=== PATIENT | female | born 1985 | race Caucasian/White ===

== ENCOUNTER 2017-09-19 17:05 | Inpatient (IN) | payer MEDICAID ==
[2017-09-19] MEDS ORDERED: PREN1TAB80 PO (17:38)
[2017-09-19 17:39] VITALS: BP 123/80
[2017-09-19] MEDS ORDERED: RINGERS SOLUTION,LACTATED 1,000 ML IV SCH (21:51)
[2017-09-19] MEDS: FentaNYL CITRATE-PF 100 MCG/2 ML VIAL IVP PRN ×4 (22:15→23:37)
[2017-09-19 23:26] VITALS: BP 116/65
[2017-09-20] MEDS ORDERED: RINGERS SOLUTION,LACTATED 1,000 ML IV PRN (00:06)
[2017-09-20] MEDS ORDERED: RINGERS SOLUTION,LACTATED 1,000 ML IV SCH (00:06)
[2017-09-20] MEDS ORDERED: OXYTOCIN 30 UNITS/LACT RINGERS 500 ML IV ONE (00:06)
[2017-09-20] MEDS ORDERED: OXYGEN THERAPY IH SCH (00:15)
[2017-09-20] MEDS ORDERED: FentaNYL CITRATE-PF 100 MCG/2 ML VIAL IVP PRN (00:15)
[2017-09-20] MEDS ORDERED: METOCLOPRAMIDE HCL 5 MG/ML 2 ML VIAL IVP PRN (00:15)
[2017-09-20] MEDS ORDERED: CITRIC ACID/SODIUM CITRATE 30 ML SOLUTION UDCUP PO PRN (00:15)
[2017-09-20] MEDS ORDERED: AMPICILLIN SODIUM 2 GM/NS 100 ML IV ONE (00:30)
[2017-09-20 00:40] LABS: BASOPHILS % (AUTO) 0.3 % (0.0-2.0); EOSINOPHILS % (AUTO) 0.4 % (1.0-6.0); LYMPHOCYTES # (AUTO) 1.9 K/uL (1.0-4.8); LYMPHOCYTES % (AUTO) 15.3 % (22.0-44.0); MEAN CORPUSCULAR HEMOGLOBIN 32.9 pg (26.0-34.0); MEAN CORPUSCULAR VOLUME 94 fL (80-100); MONOCYTES # (AUTO) 0.6 K/uL (0.1-1.0); MONOCYTES % (AUTO) 4.7 % (2.0-9.0); NEUTROPHILS % (AUTO) 79.3 % (40.0-70.0); PLATELET COUNT (AUTO)-OB 167 K/uL (150-450); RED BLOOD CELL COUNT(AUTO) 4.24 MIL/uL (4.00-5.20); RED CELL DISTRIBUTION WIDTH 13.3 % (11.5-14.5)
[2017-09-20] MEDS ORDERED: ROPIVACAINE HCL/PF 0.2% 0 ML ED ONE (00:52)
[2017-09-20] MEDS ORDERED: FentaNYL CITRATE-PF 100 MCG/2 ML VIAL ONE (00:59)
[2017-09-20] MEDS ORDERED: BUPIVACAINE HCL/PF 0.25% 10 ML VIAL ONE (00:59)
[2017-09-20] MEDS ORDERED: AMPICILLIN SODIUM 1 GM/NS 50 ML IV SCH (04:30)
[2017-09-20] MEDS ORDERED: LANOLIN 7 GM OINTMENT TP PRN (04:45)
[2017-09-20] MEDS ORDERED: GLYCERIN/WITCH HAZEL LEAF 40 PADS JAR TP PRN (04:45)
[2017-09-20] MEDS ORDERED: BENZOCAINE 20%/MENTHOL 56 GM SPRAY CANISTER TP PRN (04:45)
[2017-09-20] MEDS ORDERED: ACETAMINOPHEN/CODEINE 300-30 MG TABLET PO PRN ×2 (04:45)
[2017-09-20] MEDS: IBUPROFEN 800 MG TABLET PO SCH ×3 (05:44→18:31)
[2017-09-20] MEDS: MAGNESIUM HYDROXIDE SUSPENSION 30 ML UDCUP PO SCH (09:00)
[2017-09-20] MEDS ORDERED: ACETAMINOPHEN 325 MG TABLET PO ONE (19:00)
[2017-09-21] MEDS: IBUPROFEN 800 MG TABLET PO SCH ×3 (00:08→12:06)
[2017-09-21] MEDS: MAGNESIUM HYDROXIDE SUSPENSION 30 ML UDCUP PO SCH (08:34)
[2017-09-21] MEDS ORDERED: SENNA/DOCUSATE SODIUM 187-50 MG TABLET PO ONE (10:45)
[2017-09-21] MEDS ORDERED: IBUP-2071 PO (11:27)
== END 2017-09-21 16:40 | disposition home or self-care (01) | DRG 560 ==
LOC: OBSVTOIN 17:05 → 4S 17:05
PROVIDERS: ADMIT Obstetrics & Gynecology; ATTEND Obstetrics & Gynecology
PROC: 4A1HXCZ Monitoring of Products of Conception, Cardiac Rate, External Approach (ICD-10-PCS; 2017-09-19)
PROC: 10D07Z6 Extraction of Products of Conception, Vacuum, Via Natural or Artificial Opening (ICD-10-PCS; principal; 2017-09-20)
PROC: 0UQMXZZ Repair Vulva, External Approach (ICD-10-PCS; 2017-09-20)
PROC: 3E0R3BZ Introduction of Anesthetic Agent into Spinal Canal, Percutaneous Approach (ICD-10-PCS; 2017-09-20)
PROC: 00HU33Z Insertion of Infusion Device into Spinal Canal, Percutaneous Approach (ICD-10-PCS; 2017-09-20)
DX: O60.23X0 Term delivery with preterm labor, third trimester, not applicable or unspecified (principal); O76 Abnormality in fetal heart rate and rhythm complicating labor and delivery; O71.82 Other specified trauma to perineum and vulva; Z3A.37 37 weeks gestation of pregnancy; Z37.0 Single live birth; Z79.899 Other long term (current) drug therapy
CPT/HCPCS: 86850; 86900; 86901; J0290; J2590; J2795; J3010; J3490; J7120

== ENCOUNTER 2019-09-01 10:24 | Emergency (ER) | payer MEDICAID, OTHER ==
[~2019-09-01] VITALS: Ht 154.9 cm; Wt 61.4 kg
[~2019-09-01 10:24] MED LIST: IBUP-2071 PO; PREN1TAB80 PO
[2019-09-01 12:30] LABS: APPEARANCE,URINE CLOUDY (CLEAR); BILIRUBIN,URINE NEGATIVE (NEGATIVE); GLUCOSE, URINE (UA) NEGATIVE (NEGATIVE); KETONES,URINE NEGATIVE (NEGATIVE); LEUKOCYTE ESTERASE ,URINE SMALL (NEGATIVE); NITRATE,URINE NEGATIVE (NEGATIVE); OCCULT BLOOD,URINE SMALL (NEGATIVE); PH,URINE 6.5 (5.0-8.0); PROTEIN,URINE NEGATIVE (NEGATIVE); UROBILINOGEN,URINE 0.2 mg/dL (<=1.0)
[2019-09-01] MEDS ORDERED: FLUCONAZOLE 150 MG TABLET PO ONE (12:45)
[2019-09-01 13:03] LABS: BACTERIA,URINE Moderate /HPF (None Seen); SQUAMOUS EPITHELIAL CELL,UR Moderate /LPF (None Seen); YEAST,URINE Rare /HPF (None Seen)
[2019-09-01 13:30] VITALS: BP 129/90
== END 2019-09-01 13:35 | disposition home or self-care (01) ==
LOC: EMS 10:25
DX: N76.0 Acute vaginitis (principal); Z79.899 Other long term (current) drug therapy
CPT/HCPCS: 87086; 87210; 87491; 87591

== ENCOUNTER 2023-06-23 17:34 | Emergency (ER) | payer OTHER ==
[~2023-06-23] VITALS: Ht 154.9 cm; Wt 65.9 kg
[~2023-06-23 17:34] MED LIST changes: +IBUP-1493 PO; -IBUP-2071 PO
[2023-06-23 17:40] VITALS: TEMP 98.3
[2023-06-23 22:00] VITALS: BP 112/74; PULSE 71; RESP 17
[2023-06-23] MEDS ORDERED: IBUP-1492 PO (22:44)
== END 2023-06-24 00:04 | disposition home or self-care (01) ==
LOC: EMS 17:42
DX: S93.602A Unspecified sprain of left foot, initial encounter (principal); X50.1XXA Overexertion from prolonged static or awkward postures, initial encounter; Y93.89 Activity, other specified; Y92.89 Other specified places as the place of occurrence of the external cause; Y99.8 Other external cause status
CPT/HCPCS: 99283

== ENCOUNTER 2023-10-09 18:29 | Emergency (ER) | payer OTHER ==
[~2023-10-09] VITALS: Ht 160 cm; Wt 72.7 kg
[~2023-10-09 18:29] MED LIST changes: +IBUP-1492 PO; -IBUP-1493 PO; -PREN1TAB80 PO
[2023-10-09 18:35] VITALS: TEMP 98.3
[2023-10-09 19:07] LABS: COVID AG,FIA SOURCE NASAL SWAB
[2023-10-09 19:28] LABS: INFLUENZA TYPE A NEGATIVE FOR TYPE A (NEGATIVE); INFLUENZA TYPE B NEGATIVE FOR TYPE B (NEGATIVE); SARS-COV2 (COVID) ANTIGEN,FIA Negative (Negative)
[2023-10-09] MEDS ORDERED: IBUP-1554 PO (22:42)
[2023-10-09] MEDS ORDERED: ACET-66 PO (22:42)
[2023-10-09] MEDS ORDERED: CEPH-558 PO (22:42)
[2023-10-09 22:46] VITALS: BP 144/75; PULSE 80; RESP 18
== END 2023-10-09 22:59 | disposition home or self-care (01) ==
LOC: EMS 19:15
DX: H66.91 Otitis media, unspecified, right ear (principal); J06.9 Acute upper respiratory infection, unspecified; Z20.822 Contact with and (suspected) exposure to COVID-19
CPT/HCPCS: 87804; 99283